=== PATIENT | female | born 1950 | race Two or more races ===

== ENCOUNTER 2023-11-28 15:07 | Inpatient (IN) | payer OTHER ==
[~2023-11-28] VITALS: Ht 157.5 cm; Wt 117.2 kg
[2023-11-28 16:28] LABS: Basophils # (auto) 0.1 10 ^3/uL (0-0.2); Basophils % (auto) 1.4 % (0.0-2.0); Eosinophils # (auto) 0.1 10 ^3/uL (0-0.8); Eosinophils % (auto) 0.8 % (0.0-7.0); Hematocrit 41.1 % (36.0-46.0); Hemoglobin 13.5 g/dL (12.2-16.2); Lymphocytes # (auto) 1.3 10 ^3/uL (0.4-5.4); Lymphocytes % (auto) 18.9 % (10.0-50.0); Mean Corpuscular Hemoglobin 29.6 pg (28.0-32.0); Mean Corpuscular Hgb Conc. 32.8 g/dL (32.0-36.0); Mean Corpuscular Volume 90.2 fL (80.0-100.0); Monocytes # (auto) 0.6 10 ^3/uL (0-1.3); Monocytes % (auto) 8.1 % (0.0-12.0); Neutrophils # (auto) 4.9 10 ^3/uL (1.6-8.6); Neutrophils % (auto) 70.8 % (37.0-80.0); Nucleated Red Blood Cells % 0.1 %; Red Blood Cells 4.56 10^6/uL (4.0-5.20); White Blood Cell 6.9 10^3/uL (4.4-10.8)
[2023-11-28 16:43] LABS: Alanine Aminotransferase 34 U/L (7-40); Albumin 3.4 g/dL (3.2-4.8); Alkaline Phosphatase 119 U/L (46-116); Anion Gap 7 (5-15); Aspartate Aminotransferase 85 U/L (13-40); BUN/Creatinine Ratio 22.5 (10.0-20.0); Bilirubin, Total 1.3 mg/dL (0.2-1.0); Blood Urea Nitrogen 20 mg/dL (9-23); Calcium 8.8 mg/dL (8.7-10.4); Carbon Dioxide 36 mmol/L (20-30); Chloride 97 mmol/L (98-107); Glucose 89 mg/dL (74-106); Sodium 140 mmol/L (136-145)
[2023-11-28 16:47] LABS: Potassium 2.4 mmol/L (3.5-5.1)
[2023-11-28] MEDS ORDERED: NITROGLYCERIN 0.4 MG SL TAB SL PRN (18:15)
[2023-11-28] MEDS ORDERED: MORPHINE SULFATE INJ 2 MG/ml SYRG IV PRN (18:15)
[2023-11-28] MEDS ORDERED: DOCUSATE SOD 100 MG CAP PO PRN (18:15)
[2023-11-28] MEDS: POTASSIUM EFFERVESENT TAB 25 MEQ PO ONE (18:52)
[2023-11-28 18:55] VITALS: PULSE 53; RESP 20; O2SAT 94
[2023-11-28] MEDS: FUROSEMIDE 40 MG/4 ML VIAL IV ONE (19:06)
[2023-11-28] MEDS ORDERED: METO1TAB9 PO (19:09)
[2023-11-28] MEDS ORDERED: DILT-29 PO (19:09)
[2023-11-28] MEDS ORDERED: HYDR25TA5 PO (19:09)
[2023-11-28] MEDS ORDERED: SERT-160 PO (19:09)
[2023-11-28] MEDS ORDERED: AMIO200T13 PO (19:09)
[2023-11-28] MEDS ORDERED: ATOR40TA52 PO (19:09)
[2023-11-28] MEDS ORDERED: AMIT10TA9 PO (19:09)
[2023-11-28] MEDS ORDERED: APIX5TAB PO (19:09)
[2023-11-28] MEDS ORDERED: POTA-264 PO (19:09)
[2023-11-28] MEDS ORDERED: DEXTROSE (50%) 50ML SYRG IV PRN (19:15)
[2023-11-28 20:06] VITALS: PULSE 65; RESP 20; O2SAT 96
[2023-11-28] MEDS: ACCU-CHEK COMFORT CURVE STRIP VI SCH (22:49)
[2023-11-28] MEDS: InsuLIN REG 1unit/0.01ml Soln (100units/ml) SC SCH (22:49)
[2023-11-28] MEDS: APIXABAN 5 MG TAB PO SCH (22:50)
[2023-11-28] MEDS: AMITRIPTYLINE HCL 10 MG TAB PO SCH (23:00)
[2023-11-28 23:15] VITALS: PULSE 50; RESP 10; O2SAT 92
[2023-11-29] VITALS (13 sets, daily range): BP systolic 105–128; BP diastolic 43–62; PULSE 50–97; RESP 16–20; TEMP 97.4–98.4; O2SAT 92–98
[2023-11-29] MEDS: FUROSEMIDE 20 MG/2 ML VIAL IV SCH (05:22)
[2023-11-29 06:22] LABS: Basophils # (auto) 0 10 ^3/uL (0-0.2); Basophils % (auto) 0.8 % (0.0-2.0); Eosinophils # (auto) 0 10 ^3/uL (0-0.8); Eosinophils % (auto) 0.8 % (0.0-7.0); Hematocrit 37.5 % (36.0-46.0); Hemoglobin 12.4 g/dL (12.2-16.2); Lymphocytes # (auto) 1.2 10 ^3/uL (0.4-5.4); Lymphocytes % (auto) 22.2 % (10.0-50.0); Mean Corpuscular Hemoglobin 29.9 pg (28.0-32.0); Mean Corpuscular Volume 90.6 fL (80.0-100.0); Monocytes # (auto) 0.5 10 ^3/uL (0-1.3); Monocytes % (auto) 9.1 % (0.0-12.0); Neutrophils # (auto) 3.7 10 ^3/uL (1.6-8.6); Neutrophils % (auto) 67.1 % (37.0-80.0); Red Blood Cells 4.14 10^6/uL (4.0-5.20); White Blood Cell 5.5 10^3/uL (4.4-10.8)
[2023-11-29 06:40] LABS: Alanine Aminotransferase 29 U/L (7-40); Albumin 3.1 g/dL (3.2-4.8); Alkaline Phosphatase 113 U/L (46-116); Anion Gap 5 (5-15); Aspartate Aminotransferase 86 U/L (13-40); BUN/Creatinine Ratio 18.3 (10.0-20.0); Bilirubin, Total 0.8 mg/dL (0.2-1.0); Blood Urea Nitrogen 17 mg/dL (9-23); Calcium 8.8 mg/dL (8.5-10.1); Carbon Dioxide 38 mmol/L (20-30); Chloride 98 mmol/L (98-107); Glucose 68 mg/dL (74-106); Sodium 141 mmol/L (136-145); Total Protein 5.3 g/dL (5.7-8.2)
[2023-11-29 06:43] LABS: Potassium 2.3 mmol/L (3.5-5.1)
[2023-11-29] MEDS: POTASSIUM CHL 20 Meq TABLET PO ONE (07:43)
[2023-11-29 09:09] LABS: Magnesium 2.2 mg/dL (1.6-2.6)
[2023-11-29] MEDS: ATORVASTATIN 20 MG TAB PO SCH (09:42)
[2023-11-29] MEDS: POTASSIUM CHL 10 Meq TABLET PO SCH (09:42)
[2023-11-29] MEDS: SERTRALINE HCL 50 MG TAB PO SCH (09:43)
[2023-11-29] MEDS: METOPROLOL SUCCINATE XL 50 MG TAB PO SCH (09:43)
[2023-11-29] MEDS: PANTOPRAZOLE 40 MG TAB PO SCH (09:44)
[2023-11-29] MEDS: hydroCHLOROthiazide 25 MG TAB PO SCH (09:44)
[2023-11-29] MEDS: dilTIAZem 120MG ER CAP PO SCH (09:45)
[2023-11-29] MEDS: AMIODARONE HCL 200 MG TAB PO SCH (09:45)
[2023-11-29] MEDS ORDERED: METF-370 PO (12:29)
[2023-11-29] MEDS ORDERED: LEVO125T7 PO (12:29)
[2023-11-29] MEDS ORDERED: DICL1GEL59 TOP (12:29)
[2023-11-29] MEDS ORDERED: FURO40TA4 PO (12:29)
[2023-11-29] MEDS ORDERED: FAMO-12 PO (12:29)
[2023-11-29] MEDS ORDERED: FLUT250M2 INH (12:29)
[2023-11-29] MEDS ORDERED: GLIM4TAB42 PO (12:29)
[2023-11-29] MEDS ORDERED: ALBU108A5 INH (12:29)
[2023-11-29 13:35] LABS: Chloride 99 mmol/L (98-107); Sodium 142 mmol/L (136-145)
[2023-11-29 13:40] LABS: Calcium 8.6 mg/dL (8.5-10.1)
[2023-11-29 13:44] LABS: Glucose 103 mg/dL (74-106)
[2023-11-29 13:45] LABS: Alkaline Phosphatase 103 U/L (46-116)
[2023-11-29 13:46] LABS: Albumin 3.1 g/dL (3.2-4.8); Aspartate Aminotransferase 84 U/L (13-40)
[2023-11-29 13:47] LABS: Bilirubin, Total 0.9 mg/dL (0.2-1.0); Total Protein 5.3 g/dL (5.7-8.2)
[2023-11-29 14:23] LABS: Alanine Aminotransferase 29 U/L (7-40); BUN/Creatinine Ratio 19.3 (10.0-20.0); Blood Urea Nitrogen 17 mg/dL (9-23); Potassium 2.8 mmol/L (3.5-5.1)
[2023-11-29 14:24] LABS: Anion Gap 4 (5-15); Carbon Dioxide 39 mmol/L (20-30)
[2023-11-29] MEDS: FUROSEMIDE 40 MG/4 ML VIAL IV SCH (14:55)
[2023-11-29] MEDS: POTASSIUM EFFERVESENT TAB 25 MEQ PO ONE (14:55)
[2023-11-29] MEDS ORDERED: ALBUTEROL SULF 2.5 MG/0.5ML(0.5%) NEB SOLN NEB PRN (15:45)
[2023-11-29] MEDS ORDERED: IPRATROPIUM BROM 0.5 MG/2.5ML INH SOL NEB PRN (15:45)
[2023-11-29 16:36] LABS: INR 1.24 (0.9-1.15); Partial Thromboplastin Time 30.5 SEC (24.5-34.5); Prothrombin Time 12.8 sec (9.3-11.8)
[2023-11-30] VITALS (12 sets, daily range): BP systolic 109–130; BP diastolic 57–67; PULSE 50–62; RESP 16–21; TEMP 97.5–98.2; O2SAT 97–99
[2023-11-30] MEDS: LEVOTHYROXINE SODIUM 100 MCG TAB PO SCH (06:08)
[2023-11-30] MEDS: LEVOTHYROXINE SODIUM 25 MCG TAB PO SCH (06:08)
[2023-11-30 09:45] LABS: Basophils # (auto) 0 10 ^3/uL (0-0.2); Basophils % (auto) 0.9 % (0.0-2.0); Eosinophils # (auto) 0 10 ^3/uL (0-0.8); Eosinophils % (auto) 0.9 % (0.0-7.0); Hematocrit 39.9 % (36.0-46.0); Hemoglobin 13.2 g/dL (12.2-16.2); Mean Corpuscular Hemoglobin 29.9 pg (28.0-32.0); Mean Corpuscular Volume 90.6 fL (80.0-100.0); Monocytes # (auto) 0.4 10 ^3/uL (0-1.3); Monocytes % (auto) 8.2 % (0.0-12.0); Neutrophils # (auto) 3.5 10 ^3/uL (1.6-8.6)
[2023-11-30 09:51] LABS: Chloride 100 mmol/L (98-107); Potassium 3.1 mmol/L (3.5-5.1); Sodium 142 mmol/L (136-145)
[2023-11-30 09:52] LABS: Anion Gap 3 (5-15); Carbon Dioxide 39 mmol/L (20-30)
[2023-11-30 09:53] LABS: Calcium 8.2 mg/dL (8.5-10.1)
[2023-11-30 09:57] LABS: Glucose 179 mg/dL (74-106)
[2023-11-30 09:58] LABS: BUN/Creatinine Ratio 22.4 (10.0-20.0); Blood Urea Nitrogen 19 mg/dL (9-23)
[2023-11-30] MEDS: METOPROLOL SUCCINATE XL 50 MG TAB PO SCH (10:48)
[2023-11-30] MEDS: POTASSIUM EFFERVESENT TAB 25 MEQ PO ONE (12:29)
[2023-11-30] MEDS: ACETAMINOPHEN 325 MG TAB PO PRN (21:54)
[2023-11-30] MEDS: ONDANSETRON HCL 4 MG/2 ML VIAL IV PRN (21:55)
[2023-12-01] VITALS (9 sets, daily range): BP systolic 108–128; BP diastolic 44–70; PULSE 60–69; RESP 14–22; TEMP 97.3–98.2; O2SAT 93–99
[2023-12-01 06:01] LABS: Chloride 99 mmol/L (98-107)
[2023-12-01 06:02] LABS: Anion Gap 4 (5-15); Carbon Dioxide 38 mmol/L (20-30); Potassium 3.2 mmol/L (3.5-5.1); Sodium 141 mmol/L (136-145)
[2023-12-01 06:03] LABS: Calcium 8.7 mg/dL (8.7-10.4)
[2023-12-01 06:07] LABS: Glucose 95 mg/dL (74-106)
[2023-12-01 06:08] LABS: BUN/Creatinine Ratio 15.9 (10.0-20.0); Blood Urea Nitrogen 13 mg/dL (9-23); Magnesium 2.4 mg/dL (1.6-2.6)
[2023-12-01] MEDS: HYDROcodone-ACET 5/325MG TAB PO ONE (06:14)
[2023-12-01] MEDS: POTASSIUM EFFERVESENT TAB 25 MEQ PO ONE (11:52)
[2023-12-01] MEDS ORDERED: POTA8TAB38 PO (13:34)
[2023-12-01] MEDS ORDERED: SPIR25TA8 PO (13:34)
== END 2023-12-01 18:54 | disposition home or self-care (01) | DRG 291 ==
LOC: ER 15:07 → TELE 18:08 → TELE-WESTW 23:53
PROVIDERS: ADMIT Nurse Practitioner Family; ATTEND Nurse Practitioner Acute Care
PROC: 4B02XSZ Measurement of Cardiac Pacemaker, External Approach (ICD-10-PCS; principal; 2023-11-28)
DX: I11.0 Hypertensive heart disease with heart failure (principal); I50.31 Acute diastolic (congestive) heart failure; Z68.42 Body mass index [BMI] 45.0-49.9, adult; I25.10 Atherosclerotic heart disease of native coronary artery without angina pectoris; E87.6 Hypokalemia; E66.01 Morbid (severe) obesity due to excess calories; E11.9 Type 2 diabetes mellitus without complications; G47.30 Sleep apnea, unspecified; I48.91 Unspecified atrial fibrillation; E78.5 Hyperlipidemia, unspecified; J45.909 Unspecified asthma, uncomplicated; I49.3 Ventricular premature depolarization; E03.9 Hypothyroidism, unspecified; Z95.0 Presence of cardiac pacemaker; Z71.3 Dietary counseling and surveillance; Z79.899 Other long term (current) drug therapy; Z82.49 Family history of ischemic heart disease and other diseases of the circulatory system; Z83.3 Family history of diabetes mellitus
CPT/HCPCS: 36415; 71045; 80048; 80053; 80061; 82962; 83036; 83735; 83880; 84443; 84484; 85025; 85610; 85730; 87081; 93005; 93306; 94660; 99291; G0378; J1815; J2405

== ENCOUNTER 2024-01-03 11:26 | Inpatient (IN) | payer OTHER ==
[~2024-01-03] VITALS: Ht 157.5 cm; Wt 131.9 kg
[~2024-01-03 11:26] MED LIST: ALBU108A5 INH; AMIO200T13 PO; AMIT-399 PO; APIX5TAB PO; ATOR40TA52 PO; DICL1GEL59 TOP; FAMO-12 PO; FLUT250M2 INH; FURO40TA4 PO; GLIM4TAB42 PO; HYDR25TA5 PO; LEVO125T7 PO; METF-370 PO; METO1TAB9 PO; POTA8TAB38 PO; SERT-160 PO; SPIR25TA8 PO
[2024-01-03 12:20] LABS: Basophils # (auto) 0 10 ^3/uL (0-0.2); Basophils % (auto) 0.8 % (0.0-2.0); Eosinophils # (auto) 0.1 10 ^3/uL (0-0.8); Eosinophils % (auto) 1.2 % (0.0-7.0); Hematocrit 39.1 % (36.0-46.0); Hemoglobin 12.8 g/dL (12.2-16.2); Lymphocytes # (auto) 1.1 10 ^3/uL (0.4-5.4); Lymphocytes % (auto) 20.2 % (10.0-50.0); Mean Corpuscular Hemoglobin 29.8 pg (28.0-32.0); Mean Corpuscular Hgb Conc. 32.7 g/dL (32.0-36.0); Mean Corpuscular Volume 90.9 fL (80.0-100.0); Monocytes # (auto) 0.5 10 ^3/uL (0-1.3); Monocytes % (auto) 9.4 % (0.0-12.0); Neutrophils # (auto) 3.7 10 ^3/uL (1.6-8.6); Neutrophils % (auto) 68.4 % (37.0-80.0); Red Cell Distribution Width 16.3 % (11.8-14.3); White Blood Cell 5.5 10^3/uL (4.4-10.8)
[2024-01-03 12:29] LABS: Chloride 106 mmol/L (98-107); Potassium 3.9 mmol/L (3.5-5.1); Sodium 140 mmol/L (136-145)
[2024-01-03 12:30] LABS: Anion Gap 10 (5-15); Calcium 8.6 mg/dL (8.5-10.1); Carbon Dioxide 24 mmol/L (20-30)
[2024-01-03 12:35] LABS: BUN/Creatinine Ratio 27.2 (10.0-20.0); Blood Urea Nitrogen 22 mg/dL (9-23); Glucose 111 mg/dL (74-106)
[2024-01-03] MEDS ORDERED: DEXTROSE (50%) 50ML SYRG IV PRN (19:30)
[2024-01-03] MEDS ORDERED: NITROGLYCERIN 0.4 MG SL TAB SL PRN (19:30)
[2024-01-03] MEDS ORDERED: ONDANSETRON HCL 4 MG/2 ML VIAL IV PRN (19:30)
[2024-01-03] MEDS ORDERED: MORPHINE SULFATE INJ 2 MG/ml SYRG IV PRN (19:30)
[2024-01-03] MEDS ORDERED: DOCUSATE SOD 100 MG CAP PO PRN (19:30)
[2024-01-03 20:05] VITALS: BP 152/49; PULSE 73; RESP 20; TEMP 98.7; O2SAT 97
[2024-01-03] MEDS: FUROSEMIDE 40 MG/4 ML VIAL IV ONE (20:40)
[2024-01-03] MEDS: InsuLIN REG 1unit/0.01ml Soln (100units/ml) SC SCH (20:46)
[2024-01-03] MEDS: APIXABAN 5 MG TAB PO SCH (20:46)
[2024-01-03] MEDS: ACCU-CHEK COMFORT CURVE STRIP VI SCH (20:47)
[2024-01-03] MEDS: AMITRIPTYLINE HCL 10 MG TAB PO SCH (20:58)
[2024-01-03 21:49] VITALS: PULSE 85; RESP 20; O2SAT 96
[2024-01-04] VITALS (17 sets, daily range): BP systolic 101–133; BP diastolic 52–74; PULSE 61–95; RESP 18–22; TEMP 97.1–98.8; O2SAT 94–100
[2024-01-04] MEDS: FUROSEMIDE 20 MG/2 ML VIAL IV SCH (06:02)
[2024-01-04 06:05] LABS: Basophils # (auto) 0 10 ^3/uL (0-0.2); Basophils % (auto) 0.7 % (0.0-2.0); Eosinophils # (auto) 0.1 10 ^3/uL (0-0.8); Eosinophils % (auto) 1.6 % (0.0-7.0); Hematocrit 34.6 % (36.0-46.0); Hemoglobin 11.6 g/dL (12.2-16.2); Lymphocytes % (auto) 19.5 % (10.0-50.0); Mean Corpuscular Hgb Conc. 33.4 g/dL (32.0-36.0); Mean Corpuscular Volume 89.9 fL (80.0-100.0); Monocytes # (auto) 0.5 10 ^3/uL (0-1.3); Monocytes % (auto) 10.3 % (0.0-12.0); Neutrophils # (auto) 3.3 10 ^3/uL (1.6-8.6); Neutrophils % (auto) 67.9 % (37.0-80.0); Red Blood Cells 3.85 10^6/uL (4.0-5.20); Red Cell Distribution Width 16.6 % (11.8-14.3); White Blood Cell 4.9 10^3/uL (4.4-10.8)
[2024-01-04] MEDS: LEVOTHYROXINE SODIUM 50 MCG TAB PO SCH (06:06)
[2024-01-04 06:26] LABS: Alanine Aminotransferase 27 U/L (7-40); Albumin 3.1 g/dL (3.2-4.8); Alkaline Phosphatase 119 U/L (46-116); Anion Gap 7 (5-15); Aspartate Aminotransferase 59 U/L (13-40); BUN/Creatinine Ratio 16.5 (10.0-20.0); Bilirubin, Total 0.8 mg/dL (0.2-1.0); Blood Urea Nitrogen 16 mg/dL (9-23); Carbon Dioxide 27 mmol/L (20-30); Chloride 107 mmol/L (98-107); Glucose 114 mg/dL (74-106); Potassium 3.4 mmol/L (3.5-5.1); Sodium 141 mmol/L (136-145); Total Protein 5.7 g/dL (5.7-8.2)
[2024-01-04] MEDS: SPIRONOLACTONE 25 MG TAB PO SCH (08:41)
[2024-01-04] MEDS: POTASSIUM CHLORIDE 8 MEQ TAB PO SCH (08:41)
[2024-01-04] MEDS: AMIODARONE HCL 200 MG TAB PO SCH (08:41)
[2024-01-04] MEDS: METOPROLOL SUCCINATE XL 50 MG TAB PO SCH (08:43)
[2024-01-04] MEDS: ATORVASTATIN 20 MG TAB PO SCH ×2 (08:44→21:22)
[2024-01-04] MEDS: PANTOPRAZOLE 40 MG TAB PO SCH (08:45)
[2024-01-04] MEDS: ACETAMINOPHEN 325 MG TAB PO PRN (08:45)
[2024-01-04] MEDS: SERTRALINE HCL 50 MG TAB PO SCH (08:45)
[2024-01-04] MEDS ORDERED: POTA-36 PO (11:56)
[2024-01-04] MEDS ORDERED: DILT-29 PO (11:59)
[2024-01-04] MEDS: ALBUTEROL SULF 2.5 MG/0.5ML(0.5%) NEB SOLN NEB PRN (18:01)
[2024-01-04] MEDS: IPRATROPIUM BROM 0.5 MG/2.5ML INH SOL NEB PRN (18:01)
[2024-01-04] MEDS: FUROSEMIDE 40 MG/4 ML VIAL IV SCH (19:53)
[2024-01-05] VITALS (13 sets, daily range): BP systolic 106–126; BP diastolic 53–71; PULSE 60–66; RESP 20–21; TEMP 97.9–98.1; O2SAT 94–100
[2024-01-05] MEDS: LEVOTHYROXINE SODIUM 25 MCG TAB PO SCH (06:29)
[2024-01-05] MEDS: LEVOTHYROXINE SODIUM 112 MCG TAB PO SCH (06:29)
[2024-01-05] MEDS ORDERED: LEVOTHYROXINE SODIUM 25 MCG TAB PO SCH (07:00)
[2024-01-05 07:56] LABS: Basophils # (auto) 0 10 ^3/uL (0-0.2); Basophils % (auto) 0.8 % (0.0-2.0); Eosinophils # (auto) 0.1 10 ^3/uL (0-0.8); Eosinophils % (auto) 1.4 % (0.0-7.0); Hematocrit 33.1 % (36.0-46.0); Hemoglobin 11.1 g/dL (12.2-16.2); Lymphocytes % (auto) 23.4 % (10.0-50.0); Mean Corpuscular Hemoglobin 30.3 pg (28.0-32.0); Mean Corpuscular Hgb Conc. 33.7 g/dL (32.0-36.0); Monocytes # (auto) 0.5 10 ^3/uL (0-1.3); Monocytes % (auto) 11.2 % (0.0-12.0); Neutrophils # (auto) 2.7 10 ^3/uL (1.6-8.6); Neutrophils % (auto) 63.2 % (37.0-80.0); Nucleated Red Blood Cells % 0.1 %; Red Blood Cells 3.67 10^6/uL (4.0-5.20); Red Cell Distribution Width 16.4 % (11.8-14.3); White Blood Cell 4.3 10^3/uL (4.4-10.8)
[2024-01-05 08:08] LABS: Anion Gap 4 (5-15); Calcium 8.3 mg/dL (8.5-10.1); Carbon Dioxide 30 mmol/L (20-30); Chloride 107 mmol/L (98-107); Potassium 3.4 mmol/L (3.5-5.1); Sodium 141 mmol/L (136-145)
[2024-01-05 08:14] LABS: BUN/Creatinine Ratio 17.3 (10.0-20.0); Blood Urea Nitrogen 17 mg/dL (9-23); Glucose 98 mg/dL (74-106)
[2024-01-05] MEDS: IBUPROFEN 400 MG TAB PO PRN (17:36)
[2024-01-06] VITALS (11 sets, daily range): BP systolic 117–131; BP diastolic 66–69; PULSE 60–89; RESP 14–22; TEMP 35.8; O2SAT 96–100
[2024-01-06 06:02] LABS: Chloride 108 mmol/L (98-107); Potassium 3.9 mmol/L (3.5-5.1); Sodium 142 mmol/L (136-145)
[2024-01-06 06:03] LABS: Anion Gap 7 (5-15); Carbon Dioxide 27 mmol/L (20-30)
[2024-01-06 06:04] LABS: Calcium 8.5 mg/dL (8.5-10.1)
[2024-01-06 06:09] LABS: BUN/Creatinine Ratio 17.4 (10.0-20.0); Blood Urea Nitrogen 16 mg/dL (9-23); Glucose 102 mg/dL (74-106)
[2024-01-06 06:30] LABS: Basophils # (auto) 0 10 ^3/uL (0-0.2); Basophils % (auto) 0.9 % (0.0-2.0); Eosinophils # (auto) 0.1 10 ^3/uL (0-0.8); Eosinophils % (auto) 1.9 % (0.0-7.0); Hematocrit 36.5 % (36.0-46.0); Hemoglobin 11.6 g/dL (12.2-16.2); Lymphocytes # (auto) 0.8 10 ^3/uL (0.4-5.4); Lymphocytes % (auto) 20.7 % (10.0-50.0); Mean Corpuscular Hemoglobin 29.1 pg (28.0-32.0); Mean Corpuscular Hgb Conc. 31.8 g/dL (32.0-36.0); Mean Corpuscular Volume 91.3 fL (80.0-100.0); Monocytes # (auto) 0.4 10 ^3/uL (0-1.3); Monocytes % (auto) 10.8 % (0.0-12.0); Neutrophils # (auto) 2.7 10 ^3/uL (1.6-8.6); Neutrophils % (auto) 65.7 % (37.0-80.0); Nucleated Red Blood Cells % 0.1 %; Red Cell Distribution Width 16.3 % (11.8-14.3); White Blood Cell 4.1 10^3/uL (4.4-10.8)
[2024-01-06] MEDS: EMPAGLIFLOZIN 10 MG TAB PO SCH (10:39)
[2024-01-06] MEDS ORDERED: FURO40TA4 PO (12:10)
[2024-01-06] MEDS ORDERED: ALBUAER3 IN (12:10)
== END 2024-01-06 13:25 | disposition home or self-care (01) | DRG 291 ==
LOC: ER 11:26 → TELE 19:43 → TELE-CENTR 01-04 00:20
PROVIDERS: ADMIT Internal Medicine Pulmonary Disease; ATTEND Internal Medicine Pulmonary Disease
PROC: 5A09357 Assistance with Respiratory Ventilation, Less than 24 Consecutive Hours, Continuous Positive Airway Pressure (ICD-10-PCS; principal; 2024-01-04)
PROC: 5A09357 Assistance with Respiratory Ventilation, Less than 24 Consecutive Hours, Continuous Positive Airway Pressure (ICD-10-PCS; 2024-01-05)
DX: I11.0 Hypertensive heart disease with heart failure (principal); I50.33 Acute on chronic diastolic (congestive) heart failure; Z68.42 Body mass index [BMI] 45.0-49.9, adult; E03.9 Hypothyroidism, unspecified; J45.909 Unspecified asthma, uncomplicated; E11.9 Type 2 diabetes mellitus without complications; I48.0 Paroxysmal atrial fibrillation; I25.10 Atherosclerotic heart disease of native coronary artery without angina pectoris; E87.6 Hypokalemia; E78.5 Hyperlipidemia, unspecified; E66.01 Morbid (severe) obesity due to excess calories; G47.33 Obstructive sleep apnea (adult) (pediatric); Z79.01 Long term (current) use of anticoagulants; Z95.0 Presence of cardiac pacemaker; Z83.3 Family history of diabetes mellitus; Z96.651 Presence of right artificial knee joint; Z82.49 Family history of ischemic heart disease and other diseases of the circulatory system
CPT/HCPCS: 36415; 71045; 76705; 80048; 80053; 82962; 83735; 83880; 84443; 84484; 85025; 94640; 94660; 96374; 97163; G0378; J1815

== ENCOUNTER 2024-01-27 12:06 | Inpatient (IN) | payer OTHER ==
[~2024-01-27] VITALS: Ht 160 cm; Wt 124.3 kg
[~2024-01-27 12:06] MED LIST changes: +ALBUAER3 IN; +DILT-29 PO; +POTA-36 PO; -POTA8TAB38 PO
[2024-01-27] MEDS: ASPirin 81 mg TAB PO ONE (13:00)
[2024-01-27] MEDS: FUROSEMIDE 40 MG/4 ML VIAL IV ONE (13:00)
[2024-01-27 13:27] LABS: Basophils # (auto) 0 10 ^3/uL (0-0.2); Basophils % (auto) 0.8 % (0.0-2.0); Eosinophils # (auto) 0 10 ^3/uL (0-0.8); Eosinophils % (auto) 0.9 % (0.0-7.0); Hematocrit 38.7 % (36.0-46.0); Hemoglobin 12.1 g/dL (12.2-16.2); Lymphocytes # (auto) 0.6 10 ^3/uL (0.4-5.4); Lymphocytes % (auto) 12.9 % (10.0-50.0); Mean Corpuscular Hemoglobin 28.7 pg (28.0-32.0); Mean Corpuscular Hgb Conc. 31.2 g/dL (32.0-36.0); Monocytes # (auto) 0.4 10 ^3/uL (0-1.3); Monocytes % (auto) 8.4 % (0.0-12.0); Neutrophils # (auto) 3.4 10 ^3/uL (1.6-8.6); Nucleated Red Blood Cells % 0.1 %; Red Cell Distribution Width 17.5 % (11.8-14.3); White Blood Cell 4.5 10^3/uL (4.4-10.8)
[2024-01-27 13:37] LABS: Chloride 109 mmol/L (98-107); Potassium 4.3 mmol/L (3.5-5.1); Sodium 141 mmol/L (136-145)
[2024-01-27 13:38] LABS: Anion Gap 3 (5-15); Carbon Dioxide 29 mmol/L (20-30)
[2024-01-27 13:43] LABS: Glucose 145 mg/dL (74-106)
[2024-01-27 13:44] LABS: BUN/Creatinine Ratio 29.3 (10.0-20.0); Blood Urea Nitrogen 24 mg/dL (9-23); Magnesium 1.8 mg/dL (1.6-2.6)
[2024-01-27] MEDS ORDERED: MORPHINE SULFATE INJ 2 MG/ml SYRG IV PRN (14:45)
[2024-01-27] MEDS ORDERED: NITROGLYCERIN 0.4 MG SL TAB SL PRN (14:45)
[2024-01-27] MEDS ORDERED: DEXTROSE (50%) 50ML SYRG IV PRN (15:00)
[2024-01-27 15:02] LABS: Urine Bacteria None Seen /hpf (None Seen)
[2024-01-27 15:19] LABS: Urine Blood Negative /uL (Negative); Urine Clarity Clear (Clear); Urine Color Light-Yellow (Yellow); Urine Protein, UAD Negative (Negative); Urine Specific Gravity 1.012 (1.001-1.035); Urine Urobilinogen 2 mg/dL (Negative); Urine WBC 1 /hpf (0 - 5)
[2024-01-27 16:15] LABS: INR 1.21 (0.9-1.15); Partial Thromboplastin Time 29.2 SEC (24.5-34.5); Prothrombin Time 12.6 sec (9.3-11.8)
[2024-01-27] MEDS: InsuLIN REG 1unit/0.01ml Soln (100units/ml) SC SCH (17:00)
[2024-01-27] MEDS: ACCU-CHEK COMFORT CURVE STRIP VI SCH (17:00)
[2024-01-27] MEDS: FUROSEMIDE 40 MG/4 ML VIAL IV SCH (18:39)
[2024-01-27 19:07] VITALS: O2SAT 96
[2024-01-27 19:12] VITALS: BP 94/46; PULSE 69; RESP 18; O2SAT 96
[2024-01-27 19:30] VITALS: PULSE 60; RESP 13; O2SAT 98
[2024-01-27 22:00] VITALS: BP 135/60; PULSE 61; RESP 19; TEMP 98.2; O2SAT 95
[2024-01-27] MEDS: AMITRIPTYLINE HCL 10 MG TAB PO SCH (22:00)
[2024-01-27 22:33] VITALS: BP 135/60; PULSE 61; PULSE 65; RESP 19; TEMP 98.2; O2SAT 95
[2024-01-27] MEDS: APIXABAN 5 MG TAB PO SCH (22:38)
[2024-01-27] MEDS: ATORVASTATIN 20 MG TAB PO SCH (22:38)
[2024-01-28] VITALS (15 sets, daily range): BP systolic 105–137; BP diastolic 52–73; PULSE 60–78; RESP 16–20; TEMP 97.4–98.3; O2SAT 96–100
[2024-01-28] MEDS: LEVOTHYROXINE SODIUM 100 MCG TAB PO SCH (06:44)
[2024-01-28] MEDS: LEVOTHYROXINE SODIUM 25 MCG TAB PO SCH (06:44)
[2024-01-28 06:49] LABS: Basophils # (auto) 0 10 ^3/uL (0-0.2); Basophils % (auto) 0.9 % (0.0-2.0); Eosinophils # (auto) 0.1 10 ^3/uL (0-0.8); Eosinophils % (auto) 1.6 % (0.0-7.0); Hematocrit 35.7 % (36.0-46.0); Hemoglobin 11.3 g/dL (12.2-16.2); Lymphocytes # (auto) 0.9 10 ^3/uL (0.4-5.4); Lymphocytes % (auto) 18.6 % (10.0-50.0); Mean Corpuscular Hemoglobin 28.8 pg (28.0-32.0); Mean Corpuscular Hgb Conc. 31.5 g/dL (32.0-36.0); Mean Corpuscular Volume 91.4 fL (80.0-100.0); Monocytes # (auto) 0.5 10 ^3/uL (0-1.3); Monocytes % (auto) 11.3 % (0.0-12.0); Neutrophils # (auto) 3.1 10 ^3/uL (1.6-8.6); Neutrophils % (auto) 67.6 % (37.0-80.0); Nucleated Red Blood Cells % 0.2 %; Red Blood Cells 3.91 10^6/uL (4.0-5.20); Red Cell Distribution Width 17.3 % (11.8-14.3); White Blood Cell 4.6 10^3/uL (4.4-10.8)
[2024-01-28 06:57] LABS: Alanine Aminotransferase 32 U/L (7-40); Albumin 2.9 g/dL (3.2-4.8); Alkaline Phosphatase 128 U/L (46-116); Anion Gap 3 (5-15); Aspartate Aminotransferase 63 U/L (13-40); BUN/Creatinine Ratio 20.8 (10.0-20.0); Blood Urea Nitrogen 16 mg/dL (9-23); Calcium 8.6 mg/dL (8.5-10.1); Carbon Dioxide 29 mmol/L (20-30); Chloride 110 mmol/L (98-107); Glucose 122 mg/dL (74-106); Potassium 4.4 mmol/L (3.5-5.1); Sodium 142 mmol/L (136-145)
[2024-01-28 06:58] LABS: Bilirubin, Total 0.9 mg/dL (0.2-1.0); Total Protein 5.8 g/dL (5.7-8.2)
[2024-01-28] MEDS: POTASSIUM CHL 10 Meq TABLET PO SCH (10:13)
[2024-01-28] MEDS: SERTRALINE HCL 50 MG TAB PO SCH (10:14)
[2024-01-28] MEDS: FAMOTIDINE 20 MG TAB PO SCH (10:14)
[2024-01-28] MEDS: hydroCHLOROthiazide 25 MG TAB PO SCH (10:20)
[2024-01-28] MEDS: AMIODARONE HCL 200 MG TAB PO SCH (10:20)
[2024-01-28] MEDS: dilTIAZem 120MG ER CAP PO SCH (15:14)
[2024-01-28] MEDS: METOPROLOL SUCCINATE XL 50 MG TAB PO SCH (15:14)
[2024-01-28] MEDS: HYDROcodone-ACET 10/325MG TAB PO PRN (15:37)
[2024-01-29] VITALS (14 sets, daily range): BP systolic 103–122; BP diastolic 49–65; PULSE 60–71; RESP 16–20; TEMP 97.1–98; O2SAT 95–100
[2024-01-29 06:39] LABS: Basophils # (auto) 0 10 ^3/uL (0-0.2); Eosinophils # (auto) 0.1 10 ^3/uL (0-0.8); Hematocrit 34.7 % (36.0-46.0); Hemoglobin 11.2 g/dL (12.2-16.2); Lymphocytes # (auto) 0.9 10 ^3/uL (0.4-5.4); Lymphocytes % (auto) 19.5 % (10.0-50.0); Mean Corpuscular Hemoglobin 29.7 pg (28.0-32.0); Mean Corpuscular Hgb Conc. 32.2 g/dL (32.0-36.0); Mean Corpuscular Volume 92.1 fL (80.0-100.0); Monocytes # (auto) 0.5 10 ^3/uL (0-1.3); Neutrophils # (auto) 3.1 10 ^3/uL (1.6-8.6); Neutrophils % (auto) 66.5 % (37.0-80.0); Nucleated Red Blood Cells % 0.1 %; Red Blood Cells 3.77 10^6/uL (4.0-5.20); Red Cell Distribution Width 17.2 % (11.8-14.3); White Blood Cell 4.7 10^3/uL (4.4-10.8)
[2024-01-29 06:56] LABS: Alanine Aminotransferase 30 U/L (7-40); Alkaline Phosphatase 113 U/L (46-116); Anion Gap 3 (5-15); BUN/Creatinine Ratio 15.9 (10.0-20.0); Bilirubin, Total 1.2 mg/dL (0.2-1.0); Blood Urea Nitrogen 14 mg/dL (9-23); Calcium 8.7 mg/dL (8.5-10.1); Carbon Dioxide 28 mmol/L (20-30); Chloride 108 mmol/L (98-107); Cholesterol 84 mg/dL (< 200); Glucose 112 mg/dL (74-106); HDL Cholesterol 33 mg/dL (40-59); LDL Cholesterol 41 mg/dL (< 100); Potassium 3.8 mmol/L (3.5-5.1); Sodium 139 mmol/L (136-145); Total Protein 6.1 g/dL (5.7-8.2); Triglycerides 66 mg/dL (< 150)
[2024-01-29 07:39] LABS: Aspartate Aminotransferase 58 U/L (13-40)
[2024-01-29] MEDS: METOPROLOL SUCCINATE XL 50 MG TAB PO SCH (10:25)
[2024-01-29] MEDS: LISINOPRIL 5 MG TAB PO SCH (10:26)
[2024-01-29] MEDS: SPIRONOLACTONE 25 MG TAB PO SCH (10:27)
[2024-01-29] MEDS: EMPAGLIFLOZIN 10 MG TAB PO SCH (10:27)
[2024-01-29] MEDS: ALBUTEROL SULF 2.5 MG/0.5ML(0.5%) NEB SOLN NEB PRN (15:02)
[2024-01-30] VITALS (15 sets, daily range): BP systolic 95–112; BP diastolic 47–56; PULSE 62–86; RESP 18–22; TEMP 97.8–98.9; O2SAT 92–98
[2024-01-30 06:23] LABS: Basophils # (auto) 0 10 ^3/uL (0-0.2); Basophils % (auto) 0.6 % (0.0-2.0); Eosinophils # (auto) 0.1 10 ^3/uL (0-0.8); Eosinophils % (auto) 1.7 % (0.0-7.0); Hematocrit 31.5 % (36.0-46.0); Hemoglobin 10.5 g/dL (12.2-16.2); Lymphocytes % (auto) 21.3 % (10.0-50.0); Mean Corpuscular Hemoglobin 29.7 pg (28.0-32.0); Mean Corpuscular Hgb Conc. 33.1 g/dL (32.0-36.0); Mean Corpuscular Volume 89.7 fL (80.0-100.0); Monocytes # (auto) 0.5 10 ^3/uL (0-1.3); Monocytes % (auto) 11.5 % (0.0-12.0); Neutrophils % (auto) 64.9 % (37.0-80.0); Red Blood Cells 3.51 10^6/uL (4.0-5.20); Red Cell Distribution Width 17.1 % (11.8-14.3); White Blood Cell 4.6 10^3/uL (4.4-10.8)
[2024-01-30 06:55] LABS: Chloride 105 mmol/L (98-107); Potassium 3.8 mmol/L (3.5-5.1); Sodium 139 mmol/L (136-145)
[2024-01-30 06:56] LABS: Anion Gap 4 (5-15); Calcium 8.8 mg/dL (8.7-10.4); Carbon Dioxide 30 mmol/L (20-30)
[2024-01-30 07:01] LABS: Glucose 123 mg/dL (74-106)
[2024-01-30 07:22] LABS: Blood Urea Nitrogen 25 mg/dL (9-23)
[2024-01-30] MEDS: guaiFENesin-DM 100/10mg/5ml SYR PO PRN (09:51)
[2024-01-31] VITALS (20 sets, daily range): BP systolic 103–117; BP diastolic 28–64; PULSE 59–77; RESP 14–21; TEMP 98–98.6; O2SAT 94–100
[2024-01-31 05:52] LABS: Basophils # (auto) 0 10 ^3/uL (0-0.2); Basophils % (auto) 0.9 % (0.0-2.0); Eosinophils # (auto) 0.1 10 ^3/uL (0-0.8); Eosinophils % (auto) 1.7 % (0.0-7.0); Hematocrit 30.8 % (36.0-46.0); Hemoglobin 10.3 g/dL (12.2-16.2); Lymphocytes # (auto) 0.6 10 ^3/uL (0.4-5.4); Lymphocytes % (auto) 15.5 % (10.0-50.0); Mean Corpuscular Hemoglobin 30.2 pg (28.0-32.0); Mean Corpuscular Hgb Conc. 33.5 g/dL (32.0-36.0); Monocytes # (auto) 0.4 10 ^3/uL (0-1.3); Monocytes % (auto) 11.7 % (0.0-12.0); Neutrophils # (auto) 2.6 10 ^3/uL (1.6-8.6); Neutrophils % (auto) 70.2 % (37.0-80.0); Nucleated Red Blood Cells % 0.1 %; Red Blood Cells 3.42 10^6/uL (4.0-5.20); Red Cell Distribution Width 17.5 % (11.8-14.3); White Blood Cell 3.7 10^3/uL (4.4-10.8)
[2024-01-31 05:57] LABS: Chloride 107 mmol/L (98-107); Potassium 3.9 mmol/L (3.5-5.1); Sodium 140 mmol/L (136-145)
[2024-01-31 05:58] LABS: Anion Gap 4 (5-15); Calcium 8.5 mg/dL (8.7-10.4); Carbon Dioxide 29 mmol/L (20-30)
[2024-01-31 06:03] LABS: BUN/Creatinine Ratio 30.4 (10.0-20.0); Blood Urea Nitrogen 28 mg/dL (9-23); Glucose 120 mg/dL (74-106)
[2024-02-01] VITALS (17 sets, daily range): BP systolic 109–137; BP diastolic 55–81; PULSE 60–110; RESP 16–52; TEMP 97.6–98.2; O2SAT 92–100
[2024-02-01 06:09] LABS: Basophils # (auto) 0 10 ^3/uL (0-0.2); Basophils % (auto) 0.6 % (0.0-2.0); Eosinophils # (auto) 0 10 ^3/uL (0-0.8); Eosinophils % (auto) 1.6 % (0.0-7.0); Hematocrit 32.2 % (36.0-46.0); Hemoglobin 10.4 g/dL (12.2-16.2); Lymphocytes # (auto) 0.5 10 ^3/uL (0.4-5.4); Lymphocytes % (auto) 17.9 % (10.0-50.0); Mean Corpuscular Hemoglobin 29.6 pg (28.0-32.0); Mean Corpuscular Hgb Conc. 32.4 g/dL (32.0-36.0); Mean Corpuscular Volume 91.3 fL (80.0-100.0); Monocytes # (auto) 0.4 10 ^3/uL (0-1.3); Monocytes % (auto) 14.6 % (0.0-12.0); Neutrophils # (auto) 1.9 10 ^3/uL (1.6-8.6); Neutrophils % (auto) 65.3 % (37.0-80.0); Nucleated Red Blood Cells % 0.3 %; Red Blood Cells 3.53 10^6/uL (4.0-5.20); Red Cell Distribution Width 17.1 % (11.8-14.3)
[2024-02-01 06:22] LABS: Chloride 106 mmol/L (98-107); Sodium 140 mmol/L (136-145)
[2024-02-01 06:23] LABS: Anion Gap 4 (5-15); Carbon Dioxide 30 mmol/L (20-30)
[2024-02-01 06:24] LABS: Calcium 8.6 mg/dL (8.5-10.1)
[2024-02-01 06:28] LABS: Blood Urea Nitrogen 17 mg/dL (9-23); Glucose 123 mg/dL (74-106)
[2024-02-02] VITALS (21 sets, daily range): BP systolic 98–134; BP diastolic 49–75; PULSE 60–94; RESP 18–22; TEMP 97.3–98.2; O2SAT 92–100
[2024-02-02 07:06] LABS: Alanine Aminotransferase 41 U/L (7-40); Albumin 2.7 g/dL (3.2-4.8); Alkaline Phosphatase 114 U/L (46-116); Anion Gap 2 (5-15); Aspartate Aminotransferase 106 U/L (13-40); BUN/Creatinine Ratio 27.6 (10.0-20.0); Blood Urea Nitrogen 21 mg/dL (9-23); Calcium 8.5 mg/dL (8.7-10.4); Carbon Dioxide 33 mmol/L (20-30); Chloride 106 mmol/L (98-107); Glucose 111 mg/dL (74-106); Potassium 3.8 mmol/L (3.5-5.1); Sodium 141 mmol/L (136-145)
[2024-02-02 07:07] LABS: Bilirubin, Total 0.7 mg/dL (0.2-1.0); Total Protein 5.7 g/dL (5.7-8.2)
[2024-02-02] MEDS: ALBUTEROL SULF 2.5 MG/0.5ML(0.5%) NEB SOLN ONE (09:37)
[2024-02-02] MEDS: IPRATROPIUM BROM 0.5 MG/2.5ML INH SOL ONE (09:37)
[2024-02-02] MEDS: ALBUTEROL SULF 2.5 MG/0.5ML(0.5%) NEB SOLN NEB SCH (10:09)
[2024-02-02] MEDS: IPRATROPIUM BROM 0.5 MG/2.5ML INH SOL NEB SCH (10:10)
[2024-02-03] VITALS (18 sets, daily range): BP systolic 105–144; BP diastolic 39–80; PULSE 60–94; RESP 18–20; TEMP 97.5–98.6; O2SAT 92–100
[2024-02-03 07:01] LABS: Basophils # (auto) 0 10 ^3/uL (0-0.2); Basophils % (auto) 0.6 % (0.0-2.0); Eosinophils # (auto) 0.1 10 ^3/uL (0-0.8); Hematocrit 32.9 % (36.0-46.0); Hemoglobin 10.8 g/dL (12.2-16.2); Lymphocytes # (auto) 0.8 10 ^3/uL (0.4-5.4); Mean Corpuscular Hemoglobin 29.8 pg (28.0-32.0); Mean Corpuscular Hgb Conc. 32.9 g/dL (32.0-36.0); Mean Corpuscular Volume 90.5 fL (80.0-100.0); Monocytes # (auto) 0.4 10 ^3/uL (0-1.3); Monocytes % (auto) 13.7 % (0.0-12.0); Neutrophils # (auto) 1.9 10 ^3/uL (1.6-8.6); Neutrophils % (auto) 58.7 % (37.0-80.0); Red Blood Cells 3.63 10^6/uL (4.0-5.20); Red Cell Distribution Width 17.3 % (11.8-14.3); White Blood Cell 3.3 10^3/uL (4.4-10.8)
[2024-02-03 07:07] LABS: Chloride 104 mmol/L (98-107); Potassium 3.6 mmol/L (3.5-5.1); Sodium 141 mmol/L (136-145)
[2024-02-03 07:08] LABS: Anion Gap 3 (5-15); Carbon Dioxide 34 mmol/L (20-30)
[2024-02-03 07:09] LABS: Calcium 8.5 mg/dL (8.5-10.1)
[2024-02-03 07:13] LABS: Glucose 112 mg/dL (74-106)
[2024-02-03 07:14] LABS: BUN/Creatinine Ratio 26.7 (10.0-20.0); Blood Urea Nitrogen 20 mg/dL (9-23)
[2024-02-03] MEDS ORDERED: POTA8TAB38 PO (07:56)
[2024-02-03] MEDS ORDERED: SACU1TAB PO (07:57)
[2024-02-03] MEDS: methylPREDNISolone SOD SUCC 40 MG/ML VL IV SCH (14:00)
[2024-02-04] VITALS (22 sets, daily range): BP systolic 98–144; BP diastolic 56–75; PULSE 18–85; RESP 16–20; TEMP 97.2–98.1; O2SAT 94–100
[2024-02-04] MEDS: MORPHINE SULFATE INJ 2 MG/ml SYRG IV PRN (16:09)
[2024-02-05] VITALS (21 sets, daily range): BP systolic 98–139; BP diastolic 54–77; PULSE 60–92; RESP 18–20; TEMP 97.4–98.1; O2SAT 91–98
[2024-02-05 09:26] LABS: Basophils # (auto) 0 10 ^3/uL (0-0.2); Basophils % (auto) 0.1 % (0.0-2.0); Eosinophils # (auto) 0 10 ^3/uL (0-0.8); Hematocrit 37.9 % (36.0-46.0); Hemoglobin 12.3 g/dL (12.2-16.2); Lymphocytes # (auto) 0.4 10 ^3/uL (0.4-5.4); Lymphocytes % (auto) 5.9 % (10.0-50.0); Mean Corpuscular Hemoglobin 29.6 pg (28.0-32.0); Mean Corpuscular Hgb Conc. 32.5 g/dL (32.0-36.0); Monocytes # (auto) 0.2 10 ^3/uL (0-1.3); Monocytes % (auto) 3.9 % (0.0-12.0); Neutrophils # (auto) 5.8 10 ^3/uL (1.6-8.6); Neutrophils % (auto) 90.1 % (37.0-80.0); Nucleated Red Blood Cells % 0.1 %; Red Blood Cells 4.16 10^6/uL (4.0-5.20); White Blood Cell 6.4 10^3/uL (4.4-10.8)
[2024-02-05 09:44] LABS: Alanine Aminotransferase 76 U/L (7-40); Albumin 3.2 g/dL (3.2-4.8); Alkaline Phosphatase 119 U/L (46-116); Anion Gap 6 (5-15); Aspartate Aminotransferase 164 U/L (13-40); BUN/Creatinine Ratio 28.4 (10.0-20.0); Bilirubin, Total 0.6 mg/dL (0.2-1.0); Blood Urea Nitrogen 25 mg/dL (9-23); Calcium 8.9 mg/dL (8.5-10.1); Carbon Dioxide 30 mmol/L (20-30); Chloride 104 mmol/L (98-107); Glucose 176 mg/dL (74-106); Magnesium 2.2 mg/dL (1.6-2.6); Potassium 3.9 mmol/L (3.5-5.1); Sodium 140 mmol/L (136-145); Total Protein 6.5 g/dL (5.7-8.2)
[2024-02-06] VITALS (21 sets, daily range): BP systolic 104–135; BP diastolic 44–89; PULSE 60–90; RESP 15–20; TEMP 97.6–98.1; O2SAT 92–100
[2024-02-06 06:07] LABS: Basophils # (auto) 0 10 ^3/uL (0-0.2); Basophils % (auto) 0.2 % (0.0-2.0); Eosinophils # (auto) 0.1 10 ^3/uL (0-0.8); Eosinophils % (auto) 1.2 % (0.0-7.0); Hematocrit 35.6 % (36.0-46.0); Hemoglobin 11.6 g/dL (12.2-16.2); Lymphocytes # (auto) 0.4 10 ^3/uL (0.4-5.4); Lymphocytes % (auto) 8.5 % (10.0-50.0); Mean Corpuscular Hgb Conc. 32.6 g/dL (32.0-36.0); Mean Corpuscular Volume 91.8 fL (80.0-100.0); Monocytes # (auto) 0.4 10 ^3/uL (0-1.3); Monocytes % (auto) 8.4 % (0.0-12.0); Neutrophils # (auto) 4.3 10 ^3/uL (1.6-8.6); Neutrophils % (auto) 81.7 % (37.0-80.0); Red Blood Cells 3.87 10^6/uL (4.0-5.20); Red Cell Distribution Width 17.8 % (11.8-14.3); White Blood Cell 5.3 10^3/uL (4.4-10.8)
[2024-02-06 06:26] LABS: Alkaline Phosphatase 122 U/L (46-116); Aspartate Aminotransferase 154 U/L (13-40); Glucose 146 mg/dL (74-106)
[2024-02-06 06:27] LABS: Albumin 2.9 g/dL (3.2-4.8); Magnesium 2.4 mg/dL (1.6-2.6)
[2024-02-06 06:28] LABS: Chloride 108 mmol/L (98-107); Sodium 142 mmol/L (136-145)
[2024-02-06 06:29] LABS: Bilirubin, Total 0.5 mg/dL (0.2-1.0)
[2024-02-06 06:30] LABS: Anion Gap 5 (5-15); Carbon Dioxide 29 mmol/L (20-30)
[2024-02-06 06:31] LABS: Calcium 8.9 mg/dL (8.5-10.1)
[2024-02-06 06:45] LABS: Potassium 4.5 mmol/L (3.5-5.1)
[2024-02-06 07:26] LABS: Alanine Aminotransferase 81 U/L (7-40); BUN/Creatinine Ratio 28.8 (10.0-20.0); Blood Urea Nitrogen 23 mg/dL (9-23)
[2024-02-06] MEDS: methylPREDNISolone SOD SUCC 40 MG/ML VL IV SCH (11:00)
[2024-02-06] MEDS: ACETAMINOPHEN 325 MG TAB PO PRN (12:46)
[2024-02-06] MEDS: FUROSEMIDE 40 MG/4 ML VIAL IV SCH (18:37)
[2024-02-07] VITALS (21 sets, daily range): BP systolic 117–140; BP diastolic 58–77; PULSE 60–86; RESP 16–20; TEMP 97.6–98.3; O2SAT 95–100
[2024-02-07 09:48] LABS: Alanine Aminotransferase 100 U/L (7-40); Albumin 3.2 g/dL (3.2-4.8); Alkaline Phosphatase 127 U/L (46-116); Anion Gap 5 (5-15); Aspartate Aminotransferase 186 U/L (13-40); BUN/Creatinine Ratio 27.8 (10.0-20.0); Bilirubin, Total 0.7 mg/dL (0.2-1.0); Blood Urea Nitrogen 25 mg/dL (9-23); Calcium 9.1 mg/dL (8.5-10.1); Carbon Dioxide 31 mmol/L (20-30); Chloride 107 mmol/L (98-107); Glucose 120 mg/dL (74-106); Potassium 4.2 mmol/L (3.5-5.1); Sodium 143 mmol/L (136-145); Total Protein 6.5 g/dL (5.7-8.2)
[2024-02-08] VITALS (16 sets, daily range): BP systolic 121–139; BP diastolic 60–87; PULSE 60–71; RESP 16–21; TEMP 36.9; O2SAT 93–99
[2024-02-08 06:55] LABS: Alanine Aminotransferase 110 U/L (7-40); Albumin 2.8 g/dL (3.2-4.8); Alkaline Phosphatase 112 U/L (46-116); Anion Gap 5 (5-15); Aspartate Aminotransferase 168 U/L (13-40); BUN/Creatinine Ratio 27.1 (10.0-20.0); Blood Urea Nitrogen 23 mg/dL (9-23); Carbon Dioxide 30 mmol/L (20-30); Chloride 108 mmol/L (98-107); Glucose 124 mg/dL (74-106); Potassium 4.1 mmol/L (3.5-5.1); Sodium 143 mmol/L (136-145)
[2024-02-08 06:56] LABS: Total Protein 5.8 g/dL (5.7-8.2)
[2024-02-08 06:57] LABS: Bilirubin, Total 0.7 mg/dL (0.2-1.0)
[2024-02-08] MEDS ORDERED: PRED20TA2 PO (12:12)
== END 2024-02-08 18:00 | disposition home or self-care (01) | DRG 291 ==
LOC: ER 12:06 → TELE-CENTR 14:37 → TELE 14:37 → TELE-CENTR 22:11 → CENTRAL 02-04 14:26
PROVIDERS: ADMIT Internal Medicine; ATTEND Internal Medicine
PROC: 5A09357 Assistance with Respiratory Ventilation, Less than 24 Consecutive Hours, Continuous Positive Airway Pressure (ICD-10-PCS; principal; 2024-01-28)
PROC: 5A09357 Assistance with Respiratory Ventilation, Less than 24 Consecutive Hours, Continuous Positive Airway Pressure (ICD-10-PCS; 2024-01-29)
PROC: 5A09357 Assistance with Respiratory Ventilation, Less than 24 Consecutive Hours, Continuous Positive Airway Pressure (ICD-10-PCS; 2024-01-30)
PROC: 5A09357 Assistance with Respiratory Ventilation, Less than 24 Consecutive Hours, Continuous Positive Airway Pressure (ICD-10-PCS; 2024-01-31)
PROC: 5A09357 Assistance with Respiratory Ventilation, Less than 24 Consecutive Hours, Continuous Positive Airway Pressure (ICD-10-PCS; 2024-02-01)
PROC: 5A09357 Assistance with Respiratory Ventilation, Less than 24 Consecutive Hours, Continuous Positive Airway Pressure (ICD-10-PCS; 2024-02-02)
PROC: 5A09357 Assistance with Respiratory Ventilation, Less than 24 Consecutive Hours, Continuous Positive Airway Pressure (ICD-10-PCS; 2024-02-03)
PROC: 5A09357 Assistance with Respiratory Ventilation, Less than 24 Consecutive Hours, Continuous Positive Airway Pressure (ICD-10-PCS; 2024-02-04)
PROC: 5A09357 Assistance with Respiratory Ventilation, Less than 24 Consecutive Hours, Continuous Positive Airway Pressure (ICD-10-PCS; 2024-02-05)
PROC: 5A09357 Assistance with Respiratory Ventilation, Less than 24 Consecutive Hours, Continuous Positive Airway Pressure (ICD-10-PCS; 2024-02-06)
PROC: 5A09357 Assistance with Respiratory Ventilation, Less than 24 Consecutive Hours, Continuous Positive Airway Pressure (ICD-10-PCS; 2024-02-07)
DX: I11.0 Hypertensive heart disease with heart failure (principal); I50.33 Acute on chronic diastolic (congestive) heart failure; J96.01 Acute respiratory failure with hypoxia; R18.8 Other ascites; Z68.43 Body mass index [BMI] 50.0-59.9, adult; E11.9 Type 2 diabetes mellitus without complications; E03.9 Hypothyroidism, unspecified; J45.909 Unspecified asthma, uncomplicated; E66.01 Morbid (severe) obesity due to excess calories; E78.5 Hyperlipidemia, unspecified; I25.10 Atherosclerotic heart disease of native coronary artery without angina pectoris; I48.91 Unspecified atrial fibrillation; T50.995A Adverse effect of other drugs, medicaments and biological substances, initial encounter; Z79.01 Long term (current) use of anticoagulants; Z95.0 Presence of cardiac pacemaker; Y92.89 Other specified places as the place of occurrence of the external cause
CPT/HCPCS: 36415; 71045; 76700; 80048; 80053; 80061; 81001; 82962; 83036; 83735; 83880; 84484; 85025; 85610; 85730; 87081; 93005; 93970; 94640; 94660; 96374; 97110; 97116; 97163; 97530; 99291; G0378; J1815

== ENCOUNTER 2024-03-14 20:23 | Inpatient (IN) | payer OTHER ==
[~2024-03-14] VITALS: Ht 157.5 cm; Wt 126.8 kg
[~2024-03-14 20:23] MED LIST changes: -AMIO200T13 PO; -POTA-36 PO; +POTA8TAB38 PO; +PRED20TA2 PO; +SACU1TAB PO
[2024-03-14] MEDS: NITROGLYCERIN 2% OINT 1GM PKG TD ONE (20:45)
[2024-03-14] MEDS: FUROSEMIDE 40 MG/4 ML VIAL IV ONE (20:45)
[2024-03-14 21:03] LABS: Basophils # (auto) 0 10 ^3/uL (0-0.2); Basophils % (auto) 0.4 % (0.0-2.0); Eosinophils # (auto) 0 10 ^3/uL (0-0.8); Hematocrit 37.8 % (36.0-46.0); Hemoglobin 12.1 g/dL (12.2-16.2); Lymphocytes # (auto) 0.9 10 ^3/uL (0.4-5.4); Lymphocytes % (auto) 10.7 % (10.0-50.0); Mean Corpuscular Hgb Conc. 32.2 g/dL (32.0-36.0); Mean Corpuscular Volume 90.2 fL (80.0-100.0); Monocytes # (auto) 0.5 10 ^3/uL (0-1.3); Monocytes % (auto) 6.2 % (0.0-12.0); Neutrophils # (auto) 7.1 10 ^3/uL (1.6-8.6); Neutrophils % (auto) 82.7 % (37.0-80.0); Red Blood Cells 4.19 10^6/uL (4.0-5.20); Red Cell Distribution Width 17.4 % (11.8-14.3); White Blood Cell 8.6 10^3/uL (4.4-10.8)
[2024-03-14 21:09] LABS: Alanine Aminotransferase 42 U/L (7-40); Albumin 2.6 g/dL (3.2-4.8); Alkaline Phosphatase 115 U/L (46-116); Anion Gap 9 (5-15); Aspartate Aminotransferase 107 U/L (13-40); BUN/Creatinine Ratio 22.7 (10.0-20.0); Bilirubin, Total 1.7 mg/dL (0.2-1.0); Blood Urea Nitrogen 25 mg/dL (9-23); Calcium 8.1 mg/dL (8.5-10.1); Carbon Dioxide 23 mmol/L (20-30); Chloride 108 mmol/L (98-107); Glucose 104 mg/dL (74-106); Potassium 3.8 mmol/L (3.5-5.1); Sodium 140 mmol/L (136-145); Total Protein 4.8 g/dL (5.7-8.2)
[2024-03-14] MEDS: LEVALBUTEROL HCL 1.25 MG/3 ML NEB NEB SCH (21:09)
[2024-03-14] MEDS: ALBUMIN 5% 250 ML IV ONE ×2 (21:48→23:05)
[2024-03-14 23:51] VITALS: PULSE 60; RESP 16; O2SAT 89
[2024-03-15] VITALS (15 sets, daily range): BP systolic 95–136; BP diastolic 15–113; PULSE 60–88; RESP 18–22; O2SAT 90–98
[2024-03-15] MEDS: ALBUMIN 5% 250 ML IV ONE
[2024-03-15] MEDS: LIDOCAINE W/ EPINEPHRINE 1% 20ML VIAL ONE (01:57)
[2024-03-15] MEDS: PHENYLEPHRINE IV 250 ML IV SCH (03:00)
[2024-03-15] MEDS: PROMETHAZINE W/CODEINE 5 ML ORAL SYRUP PO ONE (03:00)
[2024-03-15] MEDS: ALBUMIN 25% 50 ML IV SCH (03:30)
[2024-03-15] MEDS ORDERED: MORPHINE SULFATE INJ 2 MG/ml SYRG IV PRN (03:30)
[2024-03-15] MEDS ORDERED: NITROGLYCERIN 0.4 MG SL TAB SL PRN (03:30)
[2024-03-15] MEDS ORDERED: ONDANSETRON HCL 4 MG/2 ML VIAL IV PRN (03:30)
[2024-03-15] MEDS: FUROSEMIDE 20 MG/2 ML VIAL IV SCH ×2 (03:30→20:01)
[2024-03-15] MEDS: ACETAMINOPHEN 325 MG TAB PO PRN (04:33)
[2024-03-15] MEDS ORDERED: ALBUTEROL SULF 2.5 MG/0.5ML(0.5%) NEB SOLN NEB PRN (04:45)
[2024-03-15] MEDS: LEVOTHYROXINE SODIUM 50 MCG TAB PO SCH (06:00)
[2024-03-15] MEDS: NOREPINEPHRINE 8 MG/250ML KIT 250 ML IV SCH (06:15)
[2024-03-15 06:54] LABS: Urine Bacteria FEW /hpf (None Seen); Urine Blood Negative /uL (Negative); Urine Clarity Turbid (Clear); Urine Color Orange (Yellow); Urine Hyaline Cast MANY /lpf (0 - 2); Urine Mucus FEW (None Seen); Urine Protein, UAD TRACE (Negative); Urine Specific Gravity 1.025 (1.001-1.035); Urine Urobilinogen 3 mg/dL (Negative); Urine WBC 9 /hpf (0 - 5)
[2024-03-15] MEDS: ACCU-CHEK COMFORT CURVE STRIP VI SCH (06:59)
[2024-03-15] MEDS: InsuLIN REG 1unit/0.01ml Soln (100units/ml) SC SCH (06:59)
[2024-03-15 08:04] LABS: Base Excess -4.5 mmol/L (-2.0-2.0)
[2024-03-15] MEDS: AMIODARONE HCL 200 MG TAB PO SCH (11:03)
[2024-03-15] MEDS: APIXABAN 5 MG TAB PO SCH (11:03)
[2024-03-15] MEDS: SERTRALINE HCL 50 MG TAB PO SCH (11:04)
[2024-03-15] MEDS: ALBUTEROL SULF 2.5 MG/0.5ML(0.5%) NEB SOLN NEB PRN (11:50)
[2024-03-15] MEDS: FUROSEMIDE 40 MG/4 ML VIAL IV ONE (12:00)
[2024-03-15 12:19] LABS: Base Excess -4.4 mmol/L (-2.0-2.0)
[2024-03-15] MEDS: AZITHROMYCIN 500MG/ 250ML 250 ML IV ONE (14:41)
[2024-03-15] MEDS: cefTRIAXone 1GM/50ML D5W 50 ML IV ONE (14:41)
[2024-03-15] MEDS: DEXTROSE (50%) 50ML SYRG IV ONE (14:42)
[2024-03-15] MEDS: LORazepam 2MG/ML-1ML VIAL IV PRN (15:39)
[2024-03-15] MEDS: FLUMAZENIL 0.1 MG/ML INJ 10ML MDV IV ONE ×2 (16:00→16:19)
[2024-03-15] MEDS: ETOMIDATE (2MG/ML) 20ML VIAL IV ONE (16:13)
[2024-03-15] MEDS: SUCCINYLCHOLINE CHLORIDE 20 MG/ML 10ML VIAL IV ONE (16:14)
[2024-03-15] MEDS: MIDAZOLAM DRIP 50 mg/50mL 50 ML IV SCH (16:20)
[2024-03-15] MEDS: MIDAZOLAM DRIP 50 mg/50mL 0 ML IV ONE (16:20)
[2024-03-15] MEDS: fentaNYL Drip 2500mCg/250mlNS 250 ML IV SCH (16:32)
[2024-03-15 16:56] LABS: Hematocrit 39.4 % (36.0-46.0); Hemoglobin 12.6 g/dL (12.2-16.2); Mean Corpuscular Hemoglobin 29.8 pg (28.0-32.0); Mean Corpuscular Hgb Conc. 31.9 g/dL (32.0-36.0); Mean Corpuscular Volume 93.4 fL (80.0-100.0); Red Blood Cells 4.22 10^6/uL (4.0-5.20); Red Cell Distribution Width 18.3 % (11.8-14.3); White Blood Cell 5.6 10^3/uL (4.4-10.8)
[2024-03-15] MEDS: MIDAZOLAM DRIP 50 mg/50mL 50 ML IV ONE (16:56)
[2024-03-15] MEDS: fentaNYL Drip 2500mCg/250mlNS 250 ML IV ONE (17:01)
[2024-03-15 17:15] LABS: Alanine Aminotransferase 66 U/L (7-40); Albumin 3.2 g/dL (3.2-4.8); Alkaline Phosphatase 86 U/L (46-116); Anion Gap 8 (5-15); Aspartate Aminotransferase 165 U/L (13-40); BUN/Creatinine Ratio 19.1 (10.0-20.0); Calcium 8.3 mg/dL (8.5-10.1); Carbon Dioxide 23 mmol/L (20-30); Chloride 105 mmol/L (98-107); Glucose 193 mg/dL (74-106); Potassium 5.2 mmol/L (3.5-5.1); Sodium 136 mmol/L (136-145); Total Protein 5.5 g/dL (5.7-8.2)
[2024-03-15 17:21] LABS: Basophils % (manual) 0 (0.0-2.0); Blast Cells 0; Blood Urea Nitrogen 36 mg/dL (9-23); Eosinophils % (manual) 0 (0-7); Myelocytes % 0; Promyelocytes % 0; Reactive Lymphocytes 0
[2024-03-15 17:28] LABS: Lactic Acid w/Reflex 4.6 mmol/L (0.4-2.0)
[2024-03-15 18:25] LABS: Base Excess -7.8 mmol/L (-2.0-2.0)
[2024-03-15 20:10] LABS: Band Neutrophils % (manual) 36; Lymphocytes % (manual) 10 (10.0-50.0); Metamyelocytes % 2; Monocytes % (manual) 4 (0-12)
[2024-03-15 20:11] LABS: Anisocytosis Slight; Large Platelets FEW; Platelet Estimate Decreased
[2024-03-15] MEDS: ATORVASTATIN 20 MG TAB PO SCH (23:14)
[2024-03-15] MEDS: FUROSEMIDE 20 MG/2 ML VIAL IV ONE (23:23)
[2024-03-16] VITALS (12 sets, daily range): BP systolic 106–123; BP diastolic 38–60; PULSE 60–120; RESP 22–26; O2SAT 92–97
[2024-03-16 03:39] LABS: Base Excess -6.8 mmol/L (-2.0-2.0)
[2024-03-16 05:25] LABS: Alanine Aminotransferase 67 U/L (7-40); Albumin 2.9 g/dL (3.2-4.8); Alkaline Phosphatase 75 U/L (46-116); Anion Gap 10 (5-15); Aspartate Aminotransferase 191 U/L (13-40); BUN/Creatinine Ratio 18.8 (10.0-20.0); Bilirubin, Total 3.1 mg/dL (0.2-1.0); Blood Urea Nitrogen 42 mg/dL (9-23); Calcium 8.5 mg/dL (8.7-10.4); Carbon Dioxide 21 mmol/L (20-30); Chloride 107 mmol/L (98-107); Glucose 68 mg/dL (74-106); Potassium 4.9 mmol/L (3.5-5.1); Sodium 138 mmol/L (136-145); Total Protein 5.2 g/dL (5.7-8.2)
[2024-03-16 05:41] LABS: Basophils # (auto) 0 10 ^3/uL (0-0.2); Basophils % (auto) 0.3 % (0.0-2.0); Eosinophils # (auto) 0 10 ^3/uL (0-0.8); Eosinophils % (auto) 0.1 % (0.0-7.0); Hematocrit 40.8 % (36.0-46.0); Hemoglobin 13.2 g/dL (12.2-16.2); Lymphocytes # (auto) 0.2 10 ^3/uL (0.4-5.4); Lymphocytes % (auto) 5.9 % (10.0-50.0); Mean Corpuscular Hemoglobin 29.6 pg (28.0-32.0); Mean Corpuscular Hgb Conc. 32.2 g/dL (32.0-36.0); Mean Corpuscular Volume 91.9 fL (80.0-100.0); Monocytes # (auto) 0.1 10 ^3/uL (0-1.3); Monocytes % (auto) 1.9 % (0.0-12.0); Neutrophils # (auto) 3.1 10 ^3/uL (1.6-8.6); Neutrophils % (auto) 91.8 % (37.0-80.0); Nucleated Red Blood Cells % 0.4 %; Red Blood Cells 4.44 10^6/uL (4.0-5.20); Red Cell Distribution Width 18.9 % (11.8-14.3); White Blood Cell 3.4 10^3/uL (4.4-10.8)
[2024-03-16 05:45] LABS: Lactic Acid w/Reflex 3.6 mmol/L (0.4-2.0)
[2024-03-16] MEDS ORDERED: VANCOMYCIN PER PHARMACY 0 MG IV SCH (06:15)
[2024-03-16] MEDS: VANCOMYCIN 1GM/200ML 200 ML IV ONE (06:19)
[2024-03-16] MEDS: DEXTROSE (50%) 50ML SYRG IV PRN (06:21)
[2024-03-16 07:03] LABS: Base Excess -5.4 mmol/L (-2.0-2.0)
[2024-03-16] MEDS: DOPamine 1600MCG/ML D5W 250 ML IV SCH (09:00)
[2024-03-16] MEDS: cefTRIAXone 1GM/50ML D5W 50 ML IV SCH (09:00)
[2024-03-16] MEDS: AZITHROMYCIN 500MG/ 250ML 250 ML IV SCH (10:00)
[2024-03-16] MEDS: D5W/SOD CHL 0.45% 1,000 ML IV SCH ×2 (11:00→15:45)
[2024-03-16 12:46] LABS: Magnesium 1.8 mg/dL (1.6-2.6)
[2024-03-16 12:47] LABS: Phosphorus 6.9 mg/dL (2.4-5.1)
[2024-03-16] MEDS: BUMETANIDE 2.5mg/10ml (0.25 mg/ml) INJ IV SCH (13:45)
[2024-03-16] MEDS ORDERED: ALBU0.084 NEB (14:13)
[2024-03-16] MEDS ORDERED: EMPA1TAB PO (14:13)
[2024-03-16] MEDS ORDERED: AMIO200T33 PO (14:13)
[2024-03-16 15:18] LABS: Urine Bacteria None Seen /hpf (None Seen)
[2024-03-16 16:06] LABS: Protein, Urine 107.6 mg/dL (0.0-11.9)
[2024-03-16 16:07] LABS: Urine Blood 2+ /uL (Negative); Urine Budding Yeast OCCASIONAL /hpf (None Seen); Urine Clarity Turbid (Clear); Urine Color Dark-Yellow (Yellow); Urine Hyaline Cast MOD /lpf (0 - 2); Urine Mucus FEW (None Seen); Urine Protein, UAD 1+ (Negative); Urine Specific Gravity 1.021 (1.001-1.035); Urine Urobilinogen 2 mg/dL (Negative); Urine WBC <1 /hpf (0 - 5)
[2024-03-16 16:08] LABS: Creatinine, Urine 110.61 mg/dL (30.0-125.0); Urine Protein/Creatinine Ratio 0.97
[2024-03-16] MEDS: FUROSEMIDE 40 MG/4 ML VIAL IV SCH (17:47)
[2024-03-16 20:38] LABS: Base Excess -5.7 mmol/L (-2.0-2.0)
[2024-03-17] VITALS (49 sets, daily range): BP systolic 80–134; BP diastolic 25–75; PULSE 90–129; RESP 10–26; TEMP 98.2–100; O2SAT 90–97
[2024-03-17 06:28] LABS: Basophils # (auto) 0 10 ^3/uL (0-0.2); Basophils % (auto) 0.4 % (0.0-2.0); Eosinophils # (auto) 0 10 ^3/uL (0-0.8); Eosinophils % (auto) 0.2 % (0.0-7.0); Hemoglobin 13.1 g/dL (12.2-16.2); Lymphocytes # (auto) 0.4 10 ^3/uL (0.4-5.4); Lymphocytes % (auto) 7.1 % (10.0-50.0); Mean Corpuscular Hemoglobin 29.3 pg (28.0-32.0); Mean Corpuscular Volume 91.3 fL (80.0-100.0); Monocytes # (auto) 0.1 10 ^3/uL (0-1.3); Neutrophils # (auto) 5.7 10 ^3/uL (1.6-8.6); Neutrophils % (auto) 91.3 % (37.0-80.0); Nucleated Red Blood Cells % 0.2 %; Red Blood Cells 4.49 10^6/uL (4.0-5.20); Red Cell Distribution Width 19.7 % (11.8-14.3); White Blood Cell 6.3 10^3/uL (4.4-10.8)
[2024-03-17 06:40] LABS: Alanine Aminotransferase 79 U/L (7-40); Albumin 2.6 g/dL (3.2-4.8); Alkaline Phosphatase 87 U/L (46-116); Anion Gap 7 (5-15); Aspartate Aminotransferase 295 U/L (13-40); BUN/Creatinine Ratio 25.4 (10.0-20.0); Bilirubin, Total 3.1 mg/dL (0.2-1.0); Calcium 8.3 mg/dL (8.7-10.4); Carbon Dioxide 23 mmol/L (20-30); Chloride 107 mmol/L (98-107); Glucose 120 mg/dL (74-106); Sodium 137 mmol/L (136-145)
[2024-03-17 06:48] LABS: Blood Urea Nitrogen 58 mg/dL (9-23)
[2024-03-17 09:46] LABS: Base Excess -3.8 mmol/L (-2.0-2.0)
[2024-03-17] MEDS: VANCOMYCIN 750mg/150ml 150 ML IV ONE (10:00)
[2024-03-17] MEDS: Jevity 1.2 Cal/Fiber 1 Liter GT SCH (14:13)
[2024-03-17 16:34] LABS: Magnesium 1.8 mg/dL (1.6-2.6)
[2024-03-17 16:35] LABS: Phosphorus 6.1 mg/dL (2.4-5.1)
[2024-03-17] MEDS: BUMETANIDE INJECTION 12.5 MG in GIVE UN-DILUTED 0 ML IV SCH (16:40)
[2024-03-17 17:21] LABS: Protein, Urine 50.6 mg/dL (0.0-11.9)
[2024-03-17 17:24] LABS: Creatinine, Urine 66.2 mg/dL (30.0-125.0); Creatinine, Urine 67.09 mg/dL (30.0-125.0); Urine Protein/Creatinine Ratio 0.75
[2024-03-17] MEDS: NOREPINEPHRINE BITARTRATE 32 MG in SODIUM CHL 0.9% 218 ML IV SCH (18:15)
[2024-03-18] VITALS (107 sets, daily range): BP systolic 89–141; BP diastolic 40–66; PULSE 100–137; RESP 16–29; TEMP 98.1–99.3; O2SAT 88–96
[2024-03-18 04:24] LABS: Basophils # (auto) 0.1 10 ^3/uL (0-0.2); Basophils % (auto) 1.2 % (0.0-2.0); Eosinophils # (auto) 0 10 ^3/uL (0-0.8); Eosinophils % (auto) 0.6 % (0.0-7.0); Hematocrit 39.5 % (36.0-46.0); Hemoglobin 12.8 g/dL (12.2-16.2); Lymphocytes # (auto) 0.3 10 ^3/uL (0.4-5.4); Lymphocytes % (auto) 6.5 % (10.0-50.0); Mean Corpuscular Hemoglobin 28.9 pg (28.0-32.0); Mean Corpuscular Hgb Conc. 32.3 g/dL (32.0-36.0); Mean Corpuscular Volume 89.4 fL (80.0-100.0); Monocytes # (auto) 0.2 10 ^3/uL (0-1.3); Neutrophils # (auto) 4.6 10 ^3/uL (1.6-8.6); Neutrophils % (auto) 88.7 % (37.0-80.0); Nucleated Red Blood Cells % 0.2 %; Red Blood Cells 4.41 10^6/uL (4.0-5.20); Red Cell Distribution Width 18.6 % (11.8-14.3); White Blood Cell 5.1 10^3/uL (4.4-10.8)
[2024-03-18] MEDS: NOREPINEPHRINE BITARTRATE 0 ML IV ONE (04:30)
[2024-03-18 04:35] LABS: Alanine Aminotransferase 92 U/L (7-40); Albumin 2.3 g/dL (3.2-4.8); Alkaline Phosphatase 86 U/L (46-116); Anion Gap 8 (5-15); Aspartate Aminotransferase 383 U/L (13-40); BUN/Creatinine Ratio 30.1 (10.0-20.0); Bilirubin, Total 2.8 mg/dL (0.2-1.0); Blood Urea Nitrogen 63 mg/dL (9-23); Calcium 8.2 mg/dL (8.7-10.4); Carbon Dioxide 22 mmol/L (20-30); Chloride 107 mmol/L (98-107); Glucose 101 mg/dL (74-106); Magnesium 1.9 mg/dL (1.6-2.6); Potassium 4.5 mmol/L (3.5-5.1); Sodium 137 mmol/L (136-145); Total Protein 4.8 g/dL (5.7-8.2)
[2024-03-18 07:15] LABS: Base Excess -5.7 mmol/L (-2.0-2.0)
[2024-03-18] MEDS: VANCOMYCIN 1GM/200ML 200 ML IV SCH (13:07)
[2024-03-18] MEDS: IBUPROFEN 800 MG TAB PO ONE (16:04)
[2024-03-19] VITALS (110 sets, daily range): BP systolic 86–145; BP diastolic 24–65; PULSE 105–135; RESP 11–39; TEMP 97–98.4; O2SAT 86–100
[2024-03-19 04:10] LABS: Hematocrit 39.2 % (36.0-46.0); Hemoglobin 12.9 g/dL (12.2-16.2); Mean Corpuscular Hemoglobin 29.6 pg (28.0-32.0); Mean Corpuscular Volume 89.7 fL (80.0-100.0); Red Blood Cells 4.37 10^6/uL (4.0-5.20); Red Cell Distribution Width 18.8 % (11.8-14.3); White Blood Cell 7.3 10^3/uL (4.4-10.8)
[2024-03-19 04:21] LABS: Anion Gap 8 (5-15); Calcium 8.4 mg/dL (8.7-10.4); Carbon Dioxide 22 mmol/L (20-30); Chloride 107 mmol/L (98-107); Sodium 137 mmol/L (136-145)
[2024-03-19 04:27] LABS: BUN/Creatinine Ratio 31.8 (10.0-20.0); Blood Urea Nitrogen 71 mg/dL (9-23); Glucose 106 mg/dL (74-106)
[2024-03-19 04:49] LABS: Basophils % (manual) 0 (0.0-2.0); Blast Cells 0; Eosinophils % (manual) 0 (0-7); Metamyelocytes % 0; Myelocytes % 0; Promyelocytes % 0; Reactive Lymphocytes 0
[2024-03-19 07:41] LABS: Base Excess -6.7 mmol/L (-2.0-2.0)
[2024-03-19] MEDS ORDERED: Nepro With Carb Steady 1 Liter Bottle GT SCH (08:00)
[2024-03-19 08:41] LABS: Albumin 2.4 g/dL (3.2-4.8); Bilirubin, Direct 2.1 mg/dL (<0.3); Bilirubin, Total 2.5 mg/dL (0.2-1.0)
[2024-03-19 08:42] LABS: Band Neutrophils % (manual) 2; Lymphocytes % (manual) 11 (10.0-50.0); Monocytes % (manual) 12 (0-12); Platelet Estimate Decreased
[2024-03-19] MEDS: DOXYCYCLINE 100MG/250ML 250 ML IV SCH (10:46)
[2024-03-19] MEDS: SODIUM BICARB 8.4% 50Meq/50ml SYR Vial IV ONE (11:35)
[2024-03-19 13:05] LABS: Base Excess -5.9 mmol/L (-2.0-2.0)
[2024-03-19] MEDS: BUMETANIDE INJECTION 25 MG in GIVE UN-DILUTED 0 ML IV SCH (14:15)
[2024-03-19 14:56] LABS: Body Fluid Red Blood Cells 171250 CUMM (0-2000); Body Fluid White Blood Cells 2000 CUMM (0-200)
[2024-03-19 15:04] LABS: Body Fluid Polymorphonuclear 89 % (0-25)
[2024-03-19] MEDS: AMIODARONE 450mg/250ml AE 250 ML IV ONE (15:52)
[2024-03-19] MEDS: AMIODARONE 450mg/250ml AE 250 ML IV SCH ×2 (15:53→21:24)
[2024-03-19] MEDS: ALBUMIN 25% 50 ML IV ONE (16:53)
[2024-03-19 17:18] LABS: Lactic Acid w/Reflex 2.5 mmol/L (0.4-2.0)
[2024-03-19 17:37] LABS: INR 1.35 (0.9-1.15); Partial Thromboplastin Time 40.7 SEC (24.5-34.5)
[2024-03-19] MEDS: ALBUMIN 25% 50 ML IV SCH (18:01)
[2024-03-19] MEDS: MEROPENEM 1GM IVPB 50 ML IV ONE (18:02)
[2024-03-19 20:02] LABS: Base Excess -6.6 mmol/L (-2.0-2.0)
[2024-03-19] MEDS: MEROPENEM 500MG IVPB 50 ML IV SCH (21:56)
[2024-03-19] MEDS ORDERED: AMIODARONE HCL 200 MG TAB PO SCH (22:00)
[2024-03-20] VITALS (118 sets, daily range): BP systolic 67–115; BP diastolic 23–76; PULSE 103–134; RESP 15–29; TEMP 97.9–99.3; O2SAT 92–97
[2024-03-20 04:02] LABS: Hematocrit 33.8 % (36.0-46.0); Hemoglobin 11.2 g/dL (12.2-16.2); Mean Corpuscular Hemoglobin 29.9 pg (28.0-32.0); Mean Corpuscular Hgb Conc. 33.2 g/dL (32.0-36.0); Mean Corpuscular Volume 90.1 fL (80.0-100.0); Red Blood Cells 3.75 10^6/uL (4.0-5.20); Red Cell Distribution Width 18.9 % (11.8-14.3); White Blood Cell 11.8 10^3/uL (4.4-10.8)
[2024-03-20 04:13] LABS: Basophils % (manual) 0 (0.0-2.0); Blast Cells 0; Eosinophils % (manual) 0 (0-7); Metamyelocytes % 0; Myelocytes % 0; Promyelocytes % 0; Reactive Lymphocytes 0
[2024-03-20 04:23] LABS: Alanine Aminotransferase 100 U/L (7-40); Albumin 2.6 g/dL (3.2-4.8); Alkaline Phosphatase 92 U/L (46-116); Anion Gap 11 (5-15); Aspartate Aminotransferase 456 U/L (13-40); Calcium 8.1 mg/dL (8.7-10.4); Carbon Dioxide 22 mmol/L (20-30); Chloride 104 mmol/L (98-107); Glucose 110 mg/dL (74-106); Potassium 5.5 mmol/L (3.5-5.1); Sodium 137 mmol/L (136-145)
[2024-03-20 04:24] LABS: Bilirubin, Total 3.1 mg/dL (0.2-1.0); Total Protein 5.1 g/dL (5.7-8.2)
[2024-03-20 04:34] LABS: Creatine Kinase IFCC 2512 U/L (34-145)
[2024-03-20 04:46] LABS: Blood Urea Nitrogen 86 mg/dL (9-23)
[2024-03-20 05:22] LABS: Anisocytosis Slight; Band Neutrophils % (manual) 3; Giant Platelets Few; Large Platelets FEW; Lymphocytes % (manual) 10 (10.0-50.0); Monocytes % (manual) 9 (0-12); Ovalocytes FEW; Platelet Estimate Decreased
[2024-03-20] MEDS ORDERED: SODIUM ZIRCONIUM CYCL 10 GM PAK PO ONE (08:15)
[2024-03-20] MEDS: InsuLIN REG 1unit/0.01ml Soln (100units/ml) IV ONE (08:15)
[2024-03-20] MEDS: ALBUTEROL SULF 2.5 MG/0.5ML(0.5%) NEB SOLN NEB ONE (08:45)
[2024-03-20] MEDS: SODIUM BICARB 8.4% 50Meq/50ml SYR INJ IV ONE (09:48)
[2024-03-20] MEDS: DEXTROSE (50%) 50ML SYRG IV ONE (09:49)
[2024-03-20] MEDS: PHENYLEPHRINE IV 250 ML IV ONE ×2 (10:11→14:38)
[2024-03-20] MEDS: PHENYLEPHRINE IV 250 ML IV SCH (10:20)
[2024-03-20] MEDS: LEVOTHYROXINE SODIUM 100 MCG/5 ML INJ IV ONE (11:30)
[2024-03-20] MEDS: METOCLOPRAMIDE HCL 5MG/ml INJ 2ml VIAL IV SCH (12:48)
[2024-03-20] MEDS: PANTOPRAZOLE 40 MG/10 ML VIAL INJ IV ONE (12:49)
[2024-03-20] MEDS: MIDAZOLAM DRIP 50 mg/50mL 50 ML IV SCH (12:57)
[2024-03-20] MEDS ORDERED: SODIUM ZIRCONIUM CYCL 10 GM PAK PO SCH (14:00)
[2024-03-20 14:32] LABS: Chloride 104 mmol/L (98-107); Potassium 5.1 mmol/L (3.5-5.1); Sodium 136 mmol/L (136-145)
[2024-03-20 14:33] LABS: Anion Gap 15 (5-15); Carbon Dioxide 17 mmol/L (20-30)
[2024-03-20 14:34] LABS: Calcium 7.9 mg/dL (8.7-10.4)
[2024-03-20 14:38] LABS: BUN/Creatinine Ratio 28.9 (10.0-20.0); Glucose 169 mg/dL (74-106)
[2024-03-20] MEDS: HEPARIN 1,000 UNITS/ml 1ML VIAL IV ONE ×2 (14:45→14:47)
[2024-03-20] MEDS: HEPARIN 1,000 UNITS/ml 1ML VIAL ONE (14:48)
[2024-03-20] MEDS: VASOPRESSIN 20 UNITS in SODIUM CHL 0.9% 99 ML IV SCH (15:30)
[2024-03-20 15:46] LABS: Blood Urea Nitrogen 92 mg/dL (9-23)
[2024-03-20] MEDS: SODIUM BICARB 8.4% 50Meq/50ml SYR Vial IV ONE (16:44)
[2024-03-20] MEDS: PHENYLEPHRINE INJ 80 MG in SODIUM CHL 0.9% 242 ML IV SCH (16:45)
[2024-03-21] VITALS (50 sets, daily range): BP systolic 0–133; BP diastolic 0–82; PULSE 0–132; RESP 0–30; TEMP 99–99.9; O2SAT 89–95
[2024-03-21 04:05] LABS: Base Excess -5.9 mmol/L (-2.0-2.0)
[2024-03-21 04:20] LABS: Hematocrit 34.1 % (36.0-46.0); Hemoglobin 11.3 g/dL (12.2-16.2); Mean Corpuscular Hemoglobin 29.5 pg (28.0-32.0); Mean Corpuscular Volume 89.4 fL (80.0-100.0); Red Blood Cells 3.81 10^6/uL (4.0-5.20); Red Cell Distribution Width 18.6 % (11.8-14.3); White Blood Cell 17.7 10^3/uL (4.4-10.8)
[2024-03-21 04:40] LABS: Basophils % (manual) 0 (0.0-2.0); Blast Cells 0; Eosinophils % (manual) 0 (0-7); Myelocytes % 0; Promyelocytes % 0; Reactive Lymphocytes 0
[2024-03-21 04:44] LABS: Alanine Aminotransferase 103 U/L (7-40); Albumin 2.4 g/dL (3.2-4.8); Alkaline Phosphatase 113 U/L (46-116); Anion Gap 16 (5-15); Aspartate Aminotransferase 444 U/L (13-40); BUN/Creatinine Ratio 28.8 (10.0-20.0); Calcium 7.7 mg/dL (8.7-10.4); Carbon Dioxide 17 mmol/L (20-30); Chloride 104 mmol/L (98-107); Glucose 134 mg/dL (74-106); Potassium 5.2 mmol/L (3.5-5.1); Sodium 137 mmol/L (136-145)
[2024-03-21 04:45] LABS: Bilirubin, Total 3.6 mg/dL (0.2-1.0)
[2024-03-21 04:58] LABS: Blood Urea Nitrogen 95 mg/dL (9-23)
[2024-03-21] MEDS ORDERED: SODIUM CHL 0.9% 1000 ML BAG XX ONE (07:00)
[2024-03-21 09:31] LABS: Band Neutrophils % (manual) 8; Lymphocytes % (manual) 7 (10.0-50.0); Metamyelocytes % 4; Monocytes % (manual) 9 (0-12); Platelet Estimate Decreased
[2024-03-21] MEDS ORDERED: PANTOPRAZOLE 40 MG/10 ML VIAL INJ IV SCH (10:00)
[2024-03-21] MEDS ORDERED: LEVOTHYROXINE SODIUM 100 MCG/5 ML INJ IV SCH (10:00)
[2024-03-21] MEDS ORDERED: LORazepam 2MG/ML-1ML VIAL IV PRN (11:30)
[2024-03-21] MEDS: MORPHINE SULFATE INJ 2 MG/ml SYRG IV PRN (11:59)
[2024-03-21 13:07] LABS: Protein, Body Fluid 2.9 g/dL (.)
[2024-03-23 09:44] LABS: Hepatitis B Core Total AB Negative (Negative)
[2024-03-23 12:15] LABS: Hepatitis A Total Antibody Positive (Negative); Hepatitis B Surface Antibody Negative (Negative); Hepatitis B Surface Antigen Negative (Negative); Hepatitis C Antibody Negative (Negative)
== END 2024-03-21 12:16 | DRG 870 ==
LOC: EDBD 20:23 → ER 20:23 → TELE 03-15 03:36 → ICU WEST 03-17 15:15
PROVIDERS: ADMIT Nurse Practitioner; ATTEND Nurse Practitioner
PROC: 5A1955Z Respiratory Ventilation, Greater than 96 Consecutive Hours (ICD-10-PCS; principal; 2024-03-15)
PROC: 0BH17EZ Insertion of Endotracheal Airway into Trachea, Via Natural or Artificial Opening (ICD-10-PCS; 2024-03-15)
PROC: 02HV33Z Insertion of Infusion Device into Superior Vena Cava, Percutaneous Approach (ICD-10-PCS; 2024-03-15)
PROC: 5A09357 Assistance with Respiratory Ventilation, Less than 24 Consecutive Hours, Continuous Positive Airway Pressure (ICD-10-PCS; 2024-03-15)
PROC: 0W9B3ZZ Drainage of Left Pleural Cavity, Percutaneous Approach (ICD-10-PCS; 2024-03-19)
PROC: 0B9D8ZX Drainage of Right Middle Lung Lobe, Via Natural or Artificial Opening Endoscopic, Diagnostic (ICD-10-PCS; 2024-03-19)
PROC: 02HV33Z Insertion of Infusion Device into Superior Vena Cava, Percutaneous Approach (ICD-10-PCS; 2024-03-20)
PROC: B548ZZA Ultrasonography of Superior Vena Cava, Guidance (ICD-10-PCS; 2024-03-20)
PROC: 03HY32Z Insertion of Monitoring Device into Upper Artery, Percutaneous Approach (ICD-10-PCS; 2024-03-20)
DX: A41.9 Sepsis, unspecified organism (principal); E43 Unspecified severe protein-calorie malnutrition; I50.33 Acute on chronic diastolic (congestive) heart failure; R65.21 Severe sepsis with septic shock; G93.41 Metabolic encephalopathy; J96.21 Acute and chronic respiratory failure with hypoxia; N17.0 Acute kidney failure with tubular necrosis; J15.4 Pneumonia due to other streptococci; I13.0 Hypertensive heart and chronic kidney disease with heart failure and stage 1 through stage 4 chronic kidney disease, or unspecified chronic kidney disease; J44.1 Chronic obstructive pulmonary disease with (acute) exacerbation; I42.9 Cardiomyopathy, unspecified; E87.20 Acidosis, unspecified; J44.0 Chronic obstructive pulmonary disease with (acute) lower respiratory infection; Z68.42 Body mass index [BMI] 45.0-49.9, adult; J91.8 Pleural effusion in other conditions classified elsewhere; N18.4 Chronic kidney disease, stage 4 (severe); Z68.43 Body mass index [BMI] 50.0-59.9, adult; E66.01 Morbid (severe) obesity due to excess calories; E11.22 Type 2 diabetes mellitus with diabetic chronic kidney disease; D69.6 Thrombocytopenia, unspecified; E03.9 Hypothyroidism, unspecified; I25.10 Atherosclerotic heart disease of native coronary artery without angina pectoris; E78.5 Hyperlipidemia, unspecified; I35.1 Nonrheumatic aortic (valve) insufficiency; E87.5 Hyperkalemia; I48.0 Paroxysmal atrial fibrillation; Z79.01 Long term (current) use of anticoagulants; Z79.51 Long term (current) use of inhaled steroids; Z79.84 Long term (current) use of oral hypoglycemic drugs; Z79.899 Other long term (current) drug therapy; Z95.0 Presence of cardiac pacemaker; Z96.651 Presence of right artificial knee joint; Z83.3 Family history of diabetes mellitus; Z82.49 Family history of ischemic heart disease and other diseases of the circulatory system
CPT/HCPCS: 31624; 32555; 36415; 36600; 71045; 76604; 76775; 80048; 80053; 80076; 80202; 81001; 82306; 82550; 82570; 82805; 82962; 83605; 83735; 83880; 83970; 83986; 84100; 84156; 84300; 84484; 85007; 85025; 85027; 85610; 85730; 86704; 86706; 86708; 86803; 87040; 87070; 87077; 87081; 87086; 87205; 87340; 89051; 93005; 94002; 94003; 94640; 94660; 99291; G0378; J0330; J1815; J2185; J2470; J3490